=== PATIENT | male | born 1945 | race Two or more races ===

== ENCOUNTER 2025-03-28 12:38 | Emergency (ER) | payer MEDICARE, MEDICAID, SELFPAY ==
[2025-03-28 13:00] VITALS: BP 148/75; PULSE 84; RESP 16; TEMP 37.2; O2SAT 95
--- NOTE | 2025-03-28 13:07 | XR_ITS ---
Exam: Chest 1 view, AP Date and time of exam: 03/28/2025, 1:38 p.m. Comparison: None INDICATION: Cough Findings: Normal heart size. No mediastinal adenopathy. No acute fracture No pulmonary edema or pneumonia. Atherosclerotic calcifications in the aorta. Impression: No active disease.
--- NOTE | 2025-03-28 13:07 | EKG_ITS ---
[facility] Test Date: 2025-03-28 Pat Name: OWEN COELLO Department: Room: - Gender: Male [place] M[place]: : 1945 Requested By: Ashely Fenton Order Number: [id number] Reading MD: Ashely Fenton Measurements Intervals Zenia Rate: 69 P: 80 NV: 174 QRS: -82 QRSD: 152 T: 73 QT: 424 QTc: 456 Interpretive Statements SINUS RHYTHM LEFT AXIS DEVIATION [QRS AXIS < -30] RIGHT BUNDLE BRANCH BLOCK [120+ ms QRS DURATION, UPRIGHT V1, 40+ ms S IN I/aVL/V4/V5/V6] ANTEROSEPTAL MYOCARDIAL INFARCTION , OF INDETERMINATE AGE [40+ ms Q WAVE IN V1-V4] No previous ECG available for comparison /[id number]/[email or web address]/[id number].pdf
--- NOTE | 2025-03-28 13:11 | XR_ITS ---
Examination: CT brain head without contrast. 2-D sagittal coronal reconstructions Date and time of exam: 03/28/2025, 2:14 p.m. INDICATION: Acute mental status changes CTDI: vol (mGy): 50.2 DLP: (mGycm): 949 Technique: Multiple CT axial sections of the brain have been obtained, 5 mm slice thickness. Contrast has not been administered. 2-D sagittal, coronal reconstructions have been obtained Low dose protocols were performed. One or more of the following dose reduction techniques were used; automated exposure control, adjustment of the mA and/or KV according to patient size, use of iterative reconstruction technique. Findings: No significant ventricular enlargement. Intra-axial or extra-axial hemorrhage density is not seen. No mass effect or midline shift Basal cisterns are not remarkable. Fourth ventricle is midline. Cranial vault intact. Mucosal thickening in the bilateral maxillary sinuses. Impression: Negative for acute hemorrhage, mass effect or midline shift Bilateral maxillary sinusitis
--- NOTE | 2025-03-28 13:12 | PD.EDOVER ---
ED Overdose RME/HPI General Chief Complaint: Overdose Stated Complaint: 1 week Cough and drank a whole bottle of med Time Seen by Provider: 03/28/25 12:53 Arrival date/time: 03/28/25 12:38 79-year-old male patient was brought in by family for evaluation regarding overdose on promethazine. Patient was seen by PCP yesterday for a cough that has been ongoing for the last 7 days, was prescribed 120 mL of promethazine. Patient woke up this morning very sleepy and groggy and incoherent. With the family look at the promethazine bottle, it was almost empty, probably 10 ml left in the bottle. According to the family did not really know what time the patient drink the whole promethazine. On my initial evaluation patient is very sleepy, hardly to awake. Yesterday the patient woke up at 6:00 in the morning drinking coffee however today did not happen. Related Data Home Medications ?Medication ?Instructions ?Recorded ?Confirmed metformin 850 mg tablet 850 mg PO BIDAC Diabetes #0 tabs 06/29/15 08/13/18 (Glucophage) tamsulosin 0.4 mg capsule 0.4 mg PO QDAY 05/02/18 08/13/18 Allergies Allergy/AdvReac Type Severity Reaction Status Date / Time No Known Allergies Allergy Verified 03/28/25 12:45 Review of Systems Review of Systems Narrative Review of Systems: Review of system reviewed and within normal limits except mentioned in HPI ED Exam Narrative Physical exam: VITAL SIGNS: Reviewed. GENERAL APPEARANCE: Drowsy, sleepy, does not commands, no acute distress, GCS 13 HEAD AND FACE: Non-traumatic. ENT: PERRL, pink conjunctivitis, eyelid no trauma, Mucous membrane moist. NECK: Supple, nontender, no nuchal rigidity. CHEST: No tenderness, no crepitus, no paradoxical movement, no retractions. LUNGS: Clear, well ventilated, symmetric, no rales, no wheezing, no ronchi, no stridor, good breath sounds bilaterally. HEART: Regular rate, regular rhythm, no murmur, no gallops. ABDOMEN: Soft, positive bowel sounds, nondistended, no guarding, nontender, no rebound, no masses, RECTAL: Deferred. GENITAL: Deferred. NEUROLOGICAL: Gross motor function intact sensory function intact, Appropriate for age. MUSCULOSKELETAL: low back nontender, full range of motion. EXTREMITIES: Nontender, full range of motion. SKIN: Color pink, dry, no rash, no lacerations, no abrasions, no contusions. LYMPHATICS: Deferred. Course Quality Measures none Orders Category Date Time Status EKG (ED ONLY) *Do not use* NOW Care 03/28/25 13:[address] head/brain wo con Stat Exams 03/28/25 13:11 Completed EKG (ED Only) Stat Exams 03/28/25 13:07 Draft XR chest 1V Stat Exams 03/28/25 13:07 Completed Acetaminophen Stat Lab 03/28/25 13:26 Completed Alcohol, Blood Medical Stat Lab 03/28/25 13:26 Completed B-Type Natriuretic Peptide Stat Lab 03/28/25 13:26 Completed CBC Stat Lab 03/28/25 13:26 Completed Comprehensive Metabolic Panel Stat Lab 03/28/25 13:26 Completed Drug Screen,Urine Stat Lab 03/28/25 14:46 Completed Partial Thromboplastin Time Stat Lab 03/28/25 13:26 Completed Salicylate Stat Lab 03/28/25 13:26 Completed Troponin I Stat Lab 03/28/25 13:26 Completed Urinalysis, C/S if Indicated Stat Lab 03/28/25 14:46 Completed Urine Culture Stat Lab 03/28/25 14:46 Received Ringers Lactated 1000 ml [Lactated Ringers] 1,000 ml Med 03/28/25 13:08 Discontinued IV 999 mls/hr hydrALAZINE INJ [Apresoline Inj] Med 03/28/25 16:21 Discontinued 10 mg IVP X1 ONE Vital Signs Vital signs: Vital Signs Temperature 98.9 F 03/28/25 13:00 Pulse Rate 84 03/28/25 13:00 Respiratory Rate 16 03/28/25 13:00 Blood Pressure 148/75 H 03/28/25 13:00 Pulse Oximetry (%) 95 03/28/25 13:00 Oxygen Delivery Method Room Air 03/28/25 13:00 Overdose MDM Narrative MDM Narrative:: 79-year-old male patient was brought in by family for evaluation regarding overdose on promethazine. Patient was seen by PCP yesterday for a cough that has been ongoing for the last 7 days, was prescribed 120 mL of promethazine. Patient woke up this morning very sleepy and groggy and incoherent. With the family look at the promethazine bottle, it was almost empty, probably 10 ml left in the bottle. According to the family did not really know what time the patient drink the whole promethazine. On my initial evaluation patient is very sleepy, hardly to awake. Yesterday the patient woke up at 6:00 in the morning drinking coffee however today did not happen. Patient's workup today all came back unremarkable. EKG showed normal sinus rhythm, ventricular rate of 69 bpm, no ST segment elevation or depression noted. Patient blood pressure was noted to be 176 over 76 after patient received IV hydralazine. He is not having any complaints. Patient control was consulted, who recommends observation for few hours no definitive management at this time except for symptomatic support. Currently patient was noted to be alert oriented ambulatory answers question appropriately. Advised them not to take promethazine anymore. Patient data External records reviewed:: None Clinical information provided by:: patient Social determinants that could affect healthcare access:: none Patient has the following chronic illnesses:: Hypertension How is presenting disease/condition affected by chronic disease/condition?: exacerbated by Evaluation data The following diagnostics were reviewed and interpreted by me:: lab results, radiology exam(s) and EKG tracing(s) Lab and/or radiology exams considered but not ordered:: None Interpretation Summary: See results MDM Medications / Prescriptions Medications or Prescriptions considered but not ordered:: None Medication administrations:: Medication Administration History Discontinued Medications Hydralazine HCl (Hydralazine Inj 20 Mg/Ml Vial) 10 mg IVP X1 ONE Stop: 03/28/25 16:22 Last Admin: 03/28/25 17:09 Dose: 10 mg Documented By: KEISHA Lactated Ringer's (Lactated Ringers) 1,000 mls @ 999 mls/hr IV .Q1H1M ONE Stop: 03/28/25 14:08 Last Admin: 03/28/25 13:42 Dose: 999 mls/hr Documented By: JULES IV fluids hydralazine Consultations Consultation(s) initiated? (list below): No Diagnosis Overdose Differential Diagnosis: drug overdose and other (Promethazine overdose) Most likely diagnosis given after review of the tests above:: Promethazine overdose, elevated blood pressure Admission Indicated Admission indicated?: not indicated Admission Request Was there a request for admission?: No Disposition Plan Disposition Plan: Discharge Discharge Attestation Discharge Attestation: The patient and all family members were given an opportunity to ask questions and understood the discharge instructions. Discharge instructions specifically effects, indications for sooner follow up or return to the emergency department, and the expected course of current diagnosis. Patient condition: Stable Discharge Plan Plan Patient Disposition: HOME (Self Care) Discharge Disposition comment: Stable Prescriptions/Referrals Prescriptions/Med Rec: No Action tamsulosin 0.4 mg capsule 0.4 mg PO QDAY metformin [Glucophage] 850 MG tablet 850 mg PO BIDAC Qty: 0 Referrals: No Primary/Family,Physician [Primary Care Provider] - In 1 week Problem List Clinical Impression: Drug overdose Patient/Caregiver Discharge Instructions Discharge Activity: activity as tolerated Education Materials: First Aid: Poisoning Additional Instructions: Thank you for the opportunity for serving you today. You are stable for discharged . You are advised to: Follow-up with your PCP in 1 to 2 days Return to ED for worsening of symptoms Increase oral fluids Stop taking promethazine Print Language: Turkish Stand Alone Forms: Macy Award Info., Patient Portal Info Letter DAYANARA/FRANCOIS Supervising Physician DAYANARA/FRANCOIS Supervising Physician: MD Aneesh
[2025-03-28 13:37] LABS: Basophils # (Auto) 0.0 Thou/mm3 (0.0-0.2); Basophils % (Auto) 0 % (0-2.5); Eosinophils # (Auto) 0.1 Thou/mm3 (0.0-0.5); Eosinophils % (Auto) 1 % (0-10); Hematocrit 30.0 % (41.0-53.0); Hemoglobin 10.1 g/dL (13.5-16.0); Immature Granulocytes Auto 0.04 Thou/mm3 (0.00-0.00); Lymphocytes # (Auto) 2.3 Thou/mm3 (1.0-4.8); Lymphocytes % (Auto) 26 % (10-50); Mean Corpuscular HGB Conc 33.7 g/dl (31.0-37.0); Mean Corpuscular Hemoglobin 31.1 pg (25.0-35.0); Mean Corpuscular Volume 92 fL (80-100); Monocytes # (Auto) 0.7 Thou/mm3 (0.0-0.8); Monocytes % (Auto) 8 % (0-12); Neutrophils # (Auto) 5.8 Thou/mm3 (1.8-7.7); Neutrophils % (Auto) 64 % (37-80); Nucleated Red Blood Cell # 0.00 Thou/mm3 (0.00-0.00); Nucleated Red Blood Cell % 0 /100 WBC (0); Platelet Count 308 Thou/mm3 (140-440); RDW Standard Deviation 43.3 fL (35.1-43.9); Red Blood Count 3.25 Miln/mm3 (4.50-5.90); White Blood Count 9.0 Thou/mm3 (3.8-10.6)
[2025-03-28] MEDS: RINGERS LACTATED 1000 ML 1,000 ML 999 ML IV (13:42)
--- NOTE | 2025-03-28 13:45 | PC.NURSE ---
CALLED POISON CONTROL AND SPOKE WITH PURNIMA WITH THE FOLLOWING RECOMMENDATIONS NO SPECIAL ANTIDOTE OBS TILL NORMAL MONITOR FOR HYPOTENSIVE (GIVE FLUIDS)/ SEIZURES AND GIVE BENZO PRN MONITOR AIR WAY
[2025-03-28 13:51] LABS: Partial Thromboplastin Time 27.3 Seconds (22.0-36.0)
[2025-03-28 13:53] LABS: B-Type Natriuretic Peptide 127 pg/mL (0-100)
[2025-03-28 14:13] LABS: Acetaminophen < 2.0 mcg/mL (10.0-20.0); Alanine Aminotransferase < 7 U/L (10-49); Albumin, Serum 4.4 gm/dL (3.4-4.8); Albumin/Globulin Ratio 1.8 (1.2-2.2); Alcohol, Blood Medical < 3.0 mg/dL (0-10.0); Alkaline Phosphatase 96 U/L (46-116); Anion Gap 12 (7-16); Aspartate Amino Transferase 12 U/L (0-34); BUN/Creatinine Ratio 12 Ratio (12-20); Bilirubin,Total 0.4 mg/dL (0.3-1.2); Blood Urea Nitrogen 22 mg/dL (9-23); Calcium 9.3 mg/dL (8.3-10.6); Calcium (Corrected) 9.3 mg/dL (8.5-10.1); Carbon Dioxide 21.5 mMol/L (20.0-31.0); Chloride 108 mMol/L (98-107); Creatinine (Component) 1.8 mg/dL (0.6-1.3); Globulin 2.4 gm/dL (2.3-3.5); Glucose 168 mg/dL (74-106); Osmolality,Calculated 288 (275-295); Potassium 5.0 mMol/L (3.4-5.1); Salicylate < 3.0 mg/dL; Sodium 141 mMol/L (136-145); Total Protein 6.8 gm/dL (5.7-8.2); Troponin I < 0.020 ng/mL (0.0-0.045); eGFR 38 See Note
[2025-03-28 14:58] LABS: Collection Type, Urine Clean Catch
[2025-03-28 15:06] LABS: Bilirubin,Urine Negative (Negative); Blood,Urine Negative (Negative); Clarity,Urine Clear (Clear/Hazy); Color,Urine Lt-Yellow (Lt Yel-Yel); Glucose, Urine Negative (Negative); Ketones,Urine Negative (Negative); Leukocyte Esterase,Urine Positive (Negative); Nitrite,Urine Negative (Negative); PH,Urine 6.5 (5.0-7.0); Protein,Urine 2+ (Neg - Trace); RBC,Urine 1 /hpf (0-3); Specific Gravity,Urine 1.019 (1.001-1.035); Squamous Epithelial Cell,Urine 1 /hpf (0-5); Urobilinogen,Urine Negative mg/dL (0.0-1.0); WBC,Urine 13 /hpf (0-5)
[2025-03-28 15:10] LABS: Culture Indicated,Urine Yes
[2025-03-28 15:21] VITALS: BP 195/83; PULSE 84; RESP 22; TEMP 36.6; O2SAT 94
[2025-03-28 15:29] LABS: Amphetamine/Methamp Scrn,U Negative (Negative); Barbiturate Screen,Urine Negative (Negative); Benzodiazepines Screen,Urine Negative (Negative); Benzoylecgonine Screen, Ur Negative (Negative); Fentanyl Screen,Urine Negative (Negative); Opiate Screen,Urine Negative (Negative); THC Screen,Urine Negative (Negative)
[2025-03-28 17:09] VITALS: BP 215/86; PULSE 72
[2025-03-28] MEDS: hydrALAZINE INJ 20 MG/ML VIAL 10 MG IVP (17:09)
[2025-03-28 17:33] VITALS: BP 172/76; PULSE 83; RESP 20; TEMP 36.4; O2SAT 97
[2025-03-28 18:51] VITALS: BMI 24.2
[2025-03-28 19:21] VITALS: BP 165/85; PULSE 85; RESP 14; TEMP 37; O2SAT 99
== END 2025-03-28 19:22 | disposition home or self-care (01) ==
PROVIDERS: Nurse Practitioner Family; Emergency Provider Emergency Medicine
DX: T50.901A Poisoning by unspecified drugs, medicaments and biological substances, accidental (unintentional), initial encounter (principal)
CPT/HCPCS: 36415; 70450; 71045; 80053; 80307; 80320; 80329; 81001; 83880; 84484; 85025; 85730; 87086; 93005; 96127; 96361; 96374; 99285; J0360; J7120; G0480